=== PATIENT | female | born 1995 | race Caucasian/White ===

== ENCOUNTER 2022-03-16 07:05 | Emergency (ER) | payer MEDICAID ==
[~2022-03-16] VITALS: Ht 157.5 cm; Wt 55.0 kg
[2022-03-16 07:05] VITALS: BP 135/81
[2022-03-16] MEDS ORDERED: ketorolac tromethamine 15mg/ml inj. IM ONE (07:45)
== END 2022-03-16 08:33 | disposition home or self-care (01) ==
LOC: ER 07:06
DX: M54.50 Low back pain, unspecified (principal); G89.29 Other chronic pain
CPT/HCPCS: 96372; 99284; J1885

== ENCOUNTER 2024-02-04 12:08 | Emergency (ER) | payer BC, MEDICAID ==
[~2024-02-04] VITALS: Ht 157.5 cm; Wt 56.5 kg
[2024-02-04 12:30] VITALS: TEMP 97.8
[2024-02-04] MEDS: normal saline 1000ml 1,000 ML IV ONE (13:22)
[2024-02-04] MEDS: metoclopramide 5 mg/ml inj IV ONE (13:22)
[2024-02-04] MEDS: ketorolac trometh 30MG/ML vial 30 MG/ML VIAL IV ONE (13:22)
[2024-02-04] MEDS: diphenhydrAMINE 50 mg/ml inj IV ONE (13:23)
[2024-02-04 16:15] LABS: URINE HCG NEGATIVE (NEG)
[2024-02-04 16:29] LABS: BILIRUBIN,URINE NEGATIVE (Neg); CLARITY,URINE CLOUDY (Clear); COLOR,URINE YELLOW (Yellow); GLUCOSE, URINE NEGATIVE (Neg); KETONES,URINE NEGATIVE (Neg); LEUKOCYTE ESTERASE ,URINE SMALL (Neg); NITRITES, URINE NEGATIVE (Neg); OCCULT BLOOD,URINE NEGATIVE (Neg); PROTEIN,URINE NEGATIVE (Neg); UROBILINOGEN,URINE 0.2 E.U/dL (0.2-1.0)
[2024-02-04 16:36] LABS: UA COLLECTION TYPE NON-SPECIFIED
[2024-02-04 16:37] LABS: SQUAMOUS EPITHELIAL CELL,UR MANY /LPF (FEW)
[2024-02-04 16:39] LABS: BACTERIA,URINE 3+ /HPF (Neg); RBC,URINE 0-2 /HPF (0-2)
[2024-02-04 18:00] VITALS: BP 117/69; PULSE 67; RESP 16; O2SAT 94
== END 2024-02-04 18:03 | disposition home or self-care (01) ==
LOC: ER 12:09
DX: G89.29 Other chronic pain (principal); R51.9 Headache, unspecified
CPT/HCPCS: 70450; 81001; 81025; 96361; 96374; 96375; 99285; J1200; J1885; J2765; J7030